=== PATIENT | female | born 1980 | race American Indian/Alaskan Native ===

== ENCOUNTER 2017-10-22 07:14 | Emergency (ER) | payer SELFPAY ==
[2017-10-22 07:49] VITALS: BP 136/87
[2017-10-22 08:15] LABS: Basophils % (Auto) 0.7 % (0.0-1.8); Eosinophils % (Auto) 1.2 % (0.0-4.3); Hematocrit 35.5 % (30.3-42.9); Hemoglobin 11.8 gm/dl (10.1-14.3); Lymphocytes # (Auto) 1.5 K/mm3 (1.2-5.4); Lymphocytes % (Auto) 40.8 % (13.4-35.0); Mean Corpuscular HGB Conc 33 % (30-34); Mean Corpuscular Hemoglobin 28 pg (28-32); Mean Corpuscular Volume 85 fl (79-97); Monocytes # (Auto) 0.3 K/mm3 (0.0-0.8); Monocytes % (Auto) 8.5 % (0.0-7.3); Platelet Count 321 K/mm3 (140-440); Red Blood Count 4.16 M/mm3 (3.65-5.03); Red Cell Distribution Width 16.7 % (13.2-15.2)
[2017-10-22 08:34] LABS: BUN/Creatinine Ratio 13; Blood Urea Nitrogen 8 mg/dL (7-17); Calcium 8.9 mg/dL (8.4-10.2); Hemolysis Index 2
--- NOTE | 2017-10-22 09:32 | Emergency Department Report ---
ED Chest Pain HPI - General Chief Complaint: Pain General Stated Complaint: CHEST/SHOULDER AND BACK PAIN ON LEFT SIDE. FINGERS Time Seen by Provider: 10/22/17 09:24 Source: patient Mode of arrival: Ambulatory Limitations: No Limitations - History of Present Illness Initial Comments: Patient is a 37-year-old female with no significant past medical history, she presented to the ER complaining of left-sided chest pain, sharp in nature and does not radiate increases with movement of her extremity and chest area. Patient denied any shortness of breath, nausea or vomiting. Patient stated that the patient is been going on for more than 2 month now. She denied any fever or cough. MD Complaint: chest pain -: month(s) Onset: during rest Pain Location: left chest Pain Radiation: none Severity: moderate Quality: sharp Consistency: intermittent, now resolved Worsens With: movement - Related Data Previous Rx's Medication Instructions Recorded Last Taken Type Ondansetron [Zofran Odt] 4 mg PO Q4H PRN #20 tab.rapdis 11/07/13 Unknown Rx Pnv 21/Iron Ps,Heme Ppep/Folic 1 each PO QDAY #30 tablet 11/07/13 03/27/14 22: 00 Rx [Prefera Ob Tablet] Progesterone, Micronized 200 mg VG QPM #30 cap 03/29/14 Unknown Rx [Progesterone] Allergies Allergy/AdvReac Type Severity Reaction Status Date / Time No Known Allergies Allergy Unverified 11/07/13 13:20 Heart Score - HEART Score History: Slightly suspicious EKG: Normal Age: < 45 Risk factors: No known risk factors Troponin: < normal limit HEART Score: 0 ED Review of Systems ROS: Stated complaint: CHEST/SHOULDER AND BACK PAIN ON LEFT SIDE. FINGERS Other details as noted in HPI Comment: All other systems reviewed and negative Constitutional: denies: chills, fever Respiratory: denies: cough, orthopnea Cardiovascular: chest pain. denies: palpitations, dyspnea on exertion Gastrointestinal: denies: abdominal pain, nausea, vomiting, diarrhea Musculoskeletal: denies: back pain Neurological: denies: headache, weakness, numbness, paresthesias, confusion, abnormal gait ED Past Medical Hx - Past Medical History Previous Medical History?: No Hx Hypertension: No Hx Congestive Heart Failure: No Hx Diabetes: No Hx Deep Vein Thrombosis: No Hx Renal Disease: No Hx Sickle Cell Disease: No Hx Seizures: No Hx Asthma: No Hx COPD: No Hx HIV: No - Surgical History Past Surgical History?: Yes Additional Surgical History: D&C - Social History Smoking Status: Current Every Day Smoker Substance Use Type: Alcohol - Medications Home Medications: Home Medications Medication Instructions Recorded Confirmed Last Taken Type Ondansetron [Zofran Odt] 4 mg PO Q4H PRN #20 tab.rapdis 11/07/13 03/28/14 Unknown Rx Pnv 21/Iron Ps,Heme Ppep/Folic 1 each PO QDAY #30 tablet 11/07/13 03/28/1403/27 22:00 Rx [Prefera Ob Tablet] Progesterone, Micronized 200 mg VG QPM #30 cap 03/29/14 Unknown Rx [Progesterone] ED Physical Exam - General Limitations: No Limitations General appearance: alert, in no apparent distress - Head Head exam: Present: atraumatic, normocephalic, normal inspection - Eye Eye exam: Present: normal appearance - ENT ENT exam: Present: normal exam - Neck Neck exam: Present: normal inspection, full ROM. Absent: tenderness, meningismus, lymphadenopathy, thyromegaly - Respiratory Respiratory exam: Present: normal lung sounds bilaterally, chest wall tenderness (left upper chest). Absent: respiratory distress, wheezes, rales, rhonchi, stridor, accessory muscle use, decreased breath sounds, prolonged expiratory - Cardiovascular Cardiovascular Exam: Present: regular rate, normal rhythm, normal heart sounds - GI/Abdominal GI/Abdominal exam: Present: soft, normal bowel sounds. Absent: distended, tenderness, guarding, rebound, rigid, organomegaly, mass, bruit, pulsatile mass , hernia - Extremities Exam Extremities exam: Present: normal inspection, full ROM, normal capillary refill. Absent: pedal edema, calf tenderness - Neurological Exam Neurological exam: Present: alert, oriented X3, CN II-XII intact, normal gait - Skin Skin exam: Present: warm, intact, normal color ED Course Vital Signs 10/22/17 07:44 Temperature 98.5 F Pulse Rate 69 Respiratory 18 Rate Blood Pressure 136/87 O2 Sat by Pulse 100 Oximetry ED Medical Decision Making - Lab Data Result diagrams: 10/22/17 07:56 10/22/17 07:56 - EKG Data -: EKG Interpreted by [place] EKG shows normal: sinus rhythm Rate: normal - EKG Data Interpretation: no acute changes Critical care attestation.: If time is entered above; I have spent that time in minutes in the direct care of this critically ill patient, excluding procedure time. ED Disposition Clinical Impression: Chest pain, Costochondritis, acute Disposition: DC-01 TO HOME OR SELFCARE Is pt being admited?: No Condition: Stable Instructions: Chest Pain (ED), Costochondritis (ED) Referrals: PRIMARY CARE, [Primary Care Provider] - 3-5 Days
== END 2017-10-22 09:38 | disposition home or self-care (01) ==
LOC: ED 07:14
DX: M94.0 Chondrocostal junction syndrome [Tietze] (principal); F17.200 Nicotine dependence, unspecified, uncomplicated; Z79.899 Other long term (current) drug therapy
CPT/HCPCS: 36415; 80048; 84484; 85025; 93005; 93010; 99283

== ENCOUNTER 2020-08-11 01:25 | Emergency (ER) | payer BC ==
[2020-08-11] MEDS ORDERED: ASPIRIN 325 MG TAB PO ONE (01:35)
[2020-08-11 02:02] LABS: Basophils # (Auto) 0.1 K/mm3 (0.0-0.1); Eosinophils # (Auto) 0.1 K/mm3 (0.0-0.4); Eosinophils % (Auto) 1.3 % (0.0-4.3); Hematocrit 33.1 % (30.3-42.9); Hemoglobin 11.1 gm/dl (10.1-14.3); Lymphocytes # (Auto) 2.1 K/mm3 (1.2-5.4); Lymphocytes % (Auto) 34.3 % (13.4-35.0); Mean Corpuscular HGB Conc 33 % (30-34); Mean Corpuscular Volume 81 fl (79-97); Monocytes # (Auto) 0.5 K/mm3 (0.0-0.8); Monocytes % (Auto) 8.3 % (0.0-7.3); Platelet Count 364 K/mm3 (140-440); Red Blood Count 4.07 M/mm3 (3.65-5.03); Red Cell Distribution Width 17.5 % (13.2-15.2)
[2020-08-11 02:19] LABS: Alanine Aminotransferase 11 units/L (7-56); Albumin 4.2 g/dL (3.9-5); Blood Urea Nitrogen 8 mg/dL (7-17); Calcium 8.8 mg/dL (8.4-10.2); Hemolysis Index 2
[2020-08-11 02:27] LABS: BUN/Creatinine Ratio 13
[2020-08-11] MEDS ORDERED: NITROGLYCERIN 2% OINT 1 GM TP ONE (02:44)
[2020-08-11] MEDS ORDERED: ONDANSETRON 4 MG/2 ML INJ IV ONE (02:45)
[2020-08-11] MEDS ORDERED: fentaNYL 100 MCG/2 ML INJ IV ONE (02:45)
--- NOTE | 2020-08-11 02:49 | Emergency Department Report ---
HPI - General Chief Complaint: Chest Pain Time Seen by Provider: 08/11/20 02:30 - HPI HPI: Room 4 The patient is a 40-year-old female present with a chief complaint of chest pain. Patient states for the past 2 days she has had intermittent tightness in her left chest and left back. Patient admits to slight shortness of breath with the tightness but denies nausea/vomiting or diaphoresis. Patient missed an occasional cough for the past 4 days but states been nonproductive. Patient denies history of fever or pleurisy. Patient states she recently flew back from [place] 3 days ago. The patient states she never had a stress test or cardiac catheterization ED Past Medical Hx - Past Medical History Previous Medical History?: No - Surgical History Past Surgical History?: Yes Additional Surgical History: D&C - Family History Family history: no significant - Social History Smoking Status: Former Smoker (None x4 months) Substance Use Type: None (Denies illicit drug use), Alcohol (Occasional) - Medications Home Medications: Home Medications Medication Instructions Recorded Confirmed Last Taken Type Ondansetron [Zofran Odt] 4 mg PO Q4H PRN #20 tab.rapdis 11/07/13 03/28/14 Unknown Rx Pnv 21/Iron Ps,Heme Ppep/Folic 1 each PO QDAY #30 tablet 11/07/13 03/28/14 03/27/14 22:00 Rx [Prefera Ob Tablet] Progesterone, Micronized 200 mg VG QPM #30 cap 03/29/14 Unknown Rx [Progesterone] Naproxen [Naprosyn] 500 mg PO BID #14 tablet 10/22/17 Unknown Rx ED Review of Systems ROS: Stated complaint: CHEST PAIN Other details as noted in HPI Constitutional: denies: diaphoresis, fever Eyes: denies: eye pain ENT: denies: throat pain Respiratory: cough, shortness of breath Cardiovascular: chest pain Endocrine: no symptoms reported Gastrointestinal: denies: nausea, vomiting Genitourinary: denies: dysuria Musculoskeletal: back pain Neurological: denies: headache Physical Exam - Physical Exam Vital Signs: Vital Signs 08/11/20 02:37 Respiratory 16 Rate Physical Exam: GENERAL: The patient is well-developed well-nourished female lying on stretcher not appearing to be in acute distress. [] HEENT: Normocephalic. Atraumatic. Extraocular motions are intact. Patient has moist mucous membranes. NECK: Supple. Trachea midline CHEST/LUNGS: Clear to auscultation. There is no respiratory distress noted. HEART/CARDIOVASCULAR: Regular. There is no tachycardia. There is no gallop rub or murmur. ABDOMEN: Abdomen is soft, nontender. Patient has normal bowel sounds. There is no abdominal distention. SKIN: There is no rash. There is no edema. There is no diaphoresis. NEURO: The patient is awake, alert, and oriented. The patient is cooperative. The patient has no focal neurologic deficits. The patient has normal speech MUSCULOSKELETAL: There is no tenderness or deformity. There is no limitation range of motion. Full range of motion of left upper extremity does not reproduce pain. There is no evidence of acute injury. ED Course Vital Signs 08/11/20 02:37 Respiratory 16 Rate ED Medical Decision Making - Lab Data Result diagrams: 08/11/20 01:41 08/11/20 01:41 Laboratory Tests 08/11/20 08/11/20 08/11/20 01:41 01:41 01:46 WBC 6.2 RBC 4.07 Hgb 11.1 Hct 33.1 MCV 81 MCH 27 L MCHC 33 RDW 17.5 H Plt Count 364 Lymph % (Auto) 34.3 [place] % (Auto) 8.3 H Eos % (Auto) 1.3 Baso % (Auto) 1.0 Lymph # (Auto) 2.1 [place] # (Auto) 0.5 Eos # (Auto) 0.1 Baso # (Auto) 0.1 Seg Neutrophils % 55.1 Seg Neutrophils # 3.4 D-Dimer Sodium 137 Potassium 3.7 Chloride 102.0 Carbon Dioxide 27 Anion Gap 12 BUN 8 Creatinine 0.6 Estimated GFR > 60 BUN/Creatinine Ratio 13 Glucose 121 H Calcium 8.8 Total Bilirubin 0.20 AST 14 ALT 11 Alkaline Phosphatase 77 Troponin T Total Protein 7.2 Albumin 4.2 Albumin/Globulin Ratio 1.4 HCG, Qual Negative 08/11/20 08/11/20 01:46 02:55 WBC RBC Hgb Hct MCV MCH MCHC RDW Plt Count Lymph % (Auto) [place] % (Auto) Eos % (Auto) Baso % (Auto) Lymph # (Auto) [place] # (Auto) Eos # (Auto) Baso # (Auto) Seg Neutrophils % Seg Neutrophils # D-Dimer < 135.00 Sodium Potassium Chloride Carbon Dioxide Anion Gap BUN Creatinine Estimated GFR BUN/Creatinine Ratio Glucose Calcium Total Bilirubin AST ALT Alkaline Phosphatase Troponin T < 0.010 Total Protein Albumin Albumin/Globulin Ratio HCG, Qual - EKG Data -: EKG Interpreted by Me EKG shows normal: sinus rhythm Rate: normal - EKG Data When compared to previous EKG there are: previous EKG unavailable Interpretation: nonspecific ST-T wave danette (T wave inversion in lead III) - Radiology Data Radiology results: image reviewed (Chest x-ray) interpreted by me: Chest x-ray-no focal infiltrates, no pneumothorax. No foreign body seen - Differential Diagnosis ACS, pericarditis, PE, GERD, muscle strain Critical care attestation.: If time is entered above; I have spent that time in minutes in the direct care of this critically ill patient, excluding procedure time. ED Disposition Clinical Impression: Chest pain Disposition: OP ADMIT IP TO THIS HOSP Is pt being admited?: Yes Does the pt Need Aspirin: Yes Condition: Fair Instructions: Nonspecific Chest Pain, Adult Referrals: PRIMARY CARE, [Primary Care Provider] - 3-5 Days Time of Disposition: 03:57 (Hospitalist paged (Dr Doshi)) Heart Score - HEART Score History: Moderately suspicious EKG: Non-specific Age: < 45 Risk factors: 1-2 risk factors Troponin: < normal limit HEART Score: 3
--- NOTE | 2020-08-11 03:19 | XRay Report ---
CHEST 2 VIEWS INDICATION / CLINICAL INFORMATION: chestpain. COMPARISON: None available. FINDINGS: SUPPORT DEVICES: None. HEART / MEDIASTINUM: No significant abnormality. LUNGS / PLEURA: No significant pulmonary or pleural abnormality. No pneumothorax. ADDITIONAL FINDINGS: No significant additional findings. IMPRESSION: 1. No acute findings. Signer Name: Brandon Pinto MD Signed: 08/11/2020 3:15 AM Workstation Name: [id number]
--- NOTE | 2020-08-11 04:32 | History and Physical Report ---
History of Present Illness Date of examination: 08/11/20 Date of admission: 08/11/20 Chief complaint: Chest pain History of present illness: The patient is a 40-year-old female present with a chief complaint of chest pain. Patient states for the past 2 days she has had intermittent tightness in her left chest and left back. Patient admits to slight shortness of breath with the tightness but denies nausea/vomiting or diaphoresis. Patient missed an occasional cough for the past 4 days but states been nonproductive. Patient denies history of fever or pleurisy. Patient states she recently flew back from [place] 3 days ago. The patient states she never had a stress test or cardiac catheterization Parent seen in ED at bedside. She reports chest pain like pressure. Patient signed of AMA and does not want to be admitted. Past History Past Medical History: denies: hypertension, hyperlipidemia Past Surgical History: Other (D and C) Social history: lives with family, smoking Family history: no significant family history Medications and Allergies Allergies Allergy/AdvReac Type Severity Reaction Status Date / Time No Known Allergies Allergy Unverified 11/07/13 13:20 Home Medications Medication Instructions Recorded Confirmed Last Taken Type Ondansetron [Zofran Odt] 4 mg PO Q4H PRN #20 tab.rapdis 11/07/13 03/28/14 Unknown Rx Pnv 21/Iron Ps,Heme Ppep/Folic 1 each PO QDAY #30 tablet 11/07/13 03/28/14 03/27/14 22:00 Rx [Prefera Ob Tablet] Progesterone, Micronized 200 mg VG QPM #30 cap 03/29/14 Unknown Rx [Progesterone] Naproxen [Naprosyn] 500 mg PO BID #14 tablet 10/22/17 Unknown Rx Review of Systems Constitutional: no anorexia Ears, nose, mouth and throat: no epistaxis, no bleeding gums Cardiovascular: chest pain Respiratory: no wheezing Gastrointestinal: no melena Genitourinary Female: no pelvic pain Rectal: no hemorrhoids Musculoskeletal: no atrophy Integumentary: no rash, no pruritis Neurological: no weakness Psychiatric: anxiety, no disorientation, no hallucinations Hematologic/Lymphatic: no easy bruising, no easy bleeding Allergic/Immunologic: no urticaria Exam - Constitutional Vitals: Temp Pulse Resp BP Pulse Ox 68 16 115/71 99 08/11/20 03:00 08/11/20 03:00 08/11/20 03:00 08/11/20 03:00 General appearance: Present: mild distress, well-nourished - EENT Eyes: Present: PERRL ENT: hearing intact, clear oral mucosa - Neck Neck: Present: supple, normal ROM - Respiratory Respiratory effort: normal Respiratory: bilateral: CTA - Cardiovascular Heart rate: 69 Heart Sounds: Present: S1 & S2. Absent: rub, click - Extremities Extremities: pulses symmetrical, No edema Peripheral Pulses: within normal limits - Abdominal General gastrointestinal: Present: soft, non-tender, non-distended, normal bowel sounds Female genitourinary: Present: normal - Integumentary Integumentary: Present: clear, warm, dry - Musculoskeletal Musculoskeletal: gait normal, strength equal bilaterally - Psychiatric Psychiatric: appropriate mood/affect, intact judgment & insight, cooperative - Neurologic Neurologic: CNII-XII intact, moves all extremities - Allied Health Allied health notes reviewed: nursing HEART Score - HEART Score EKG: Non-specific Age: < 45 Risk factors: 1-2 risk factors Troponin: Troponin T < 0.010 ng/mL (0.00-0.029) 08/11/20 01:46 Troponin: < normal limit Results - Labs CBC & Chem 7: 08/11/20 01:41 08/11/20 01:41 Labs: Abnormal lab results 08/11/20 08/11/20 Range/Units 01:41 01:41 MCH 27 L (28-32) pg RDW 17.5 H (13.2-15.2) % [place] % (Auto) 8.3 H (0.0-7.3) % Glucose 121 H (65-100) mg/dL Assessment and Plan - Patient Problems (1) Chest pain Current Visit: Yes Status: Acute (2) Tobacco use Current Visit: Yes Status: Acute
[2020-08-11] MEDS ORDERED: hydrALAZINE 20 MG/1 ML INJ IV PRN (05:00)
[2020-08-11] MEDS ORDERED: ONDANSETRON 4 MG/2 ML INJ IV PRN (05:01)
[2020-08-11] MEDS ORDERED: ALUM-MAG HYDROXIDE-SIMETHICONE 200-200-20MG/5ML ORAL LIQD 30 ML PO PRN (05:01)
[2020-08-11] MEDS ORDERED: traZODone 50 MG TAB PO PRN (05:01)
[2020-08-11 05:14] VITALS: BP 122/74
[2020-08-11] MEDS ORDERED: ASPIRIN EC 81 MG TAB PO SCH (10:00)
--- NOTE | 2020-08-12 13:59 | Electrocardiograph Report ---
[facility] Test Date: 2020-08-11 Test Time: 01:37:20 Pat Name: JOSH ARGUELLO Department: Room: Gender: F Brush Hand: TOMASZ : 1980 Requested By: VERONICA JIMENES Order Number: [id number] Reading MD: Johnny Norman Measurements Intervals [place] Rate: 87 P: 54 MT: 146 QRS: -4 QRSD: 101 T: 8 QT: 382 QTc: 461 Interpretive Statements Sinus rhythm No previous ECG available for comparison Electronically Signed On 08-12-2020 10:59:25 PDT by Johnny Norman
== END 2020-08-11 05:14 | disposition left against medical advice (07) ==
LOC: ED 01:25
DX: R07.89 Other chest pain (principal); Z79.899 Other long term (current) drug therapy; Z87.891 Personal history of nicotine dependence; Z98.890 Other specified postprocedural states
CPT/HCPCS: 36415; 71046; 80053; 84484; 84703; 85025; 85379; 93005; 96374; 96375; 99284; J2405; J3010

== ENCOUNTER 2020-08-17 00:02 | Emergency (ER) | payer BC ==
[2020-08-17 00:41] VITALS: BP 161/75
[2020-08-17] MEDS ORDERED: IBUPROFEN 800 MG TAB PO ONE (02:19)
[2020-08-17] MEDS ORDERED: predniSONE 20 MG TAB PO ONE (02:19)
--- NOTE | 2020-08-17 02:27 | Emergency Department Report ---
ED Back Pain/Injury HPI - General Chief Complaint: Extremity Problem,Nontraumatic Stated Complaint: LEFT SIDE SHOULDER PAIN Source: patient Limitations: No Limitations - History of Present Illness Initial Comments: Patient is a 40-year-old white female with no past medical history who presents to the ED with complaint of acute onset persistent nontraumatic left-sided mid posterior thoracic pain for the last 2 weeks intermittently. Patient states that the pain is intermittent and gets worse with movement or palpation of the left posterior thoracic area. Patient denies fall, traumatic injury, chest pain, shortness of breath, fever, chills, nausea, vomiting, headache, neck pain, numbness and tingling or weakness of upper and lower extremities bilaterally, heavy lifting, abdominal pain, dysuria, urinary frequency and urgency or hematuria. MD Complaint: back pain (Left-sided posterior midthoracic pain) -: Sudden, week(s) (2) Similar Symptoms Previously: Yes Place: home Radiation: none Severity: severe Severity scale (0 -10): 7 Quality: sharp, aching Consistency: intermittent Improves With: none Worsens With: movement Context: unknown (Spontaneous) Associated Symptoms: denies other symptoms. denies: confusion, weakness, chest pain, numbness, difficulty walking, cough, difficulty urinating, diaphoresis, incontinence, constipation, headaches, abdominal pain, malaise, nausea/vomiting, rash, seizure, shortness of breath, syncope, other - Related Data Previous Rx's Medication Instructions Recorded Last Taken Type Ondansetron [Zofran Odt] 4 mg PO Q4H PRN #20 tab.rapdis 11/07/13 Unknown Rx Pnv 21/Iron Ps,Heme Ppep/Folic 1 each PO QDAY #30 tablet 11/07/13 03/27/14 22:00 Rx [Prefera Ob Tablet] Progesterone, Micronized 200 mg VG QPM #30 cap 03/29/14 Unknown Rx [Progesterone] Naproxen [Naprosyn] 500 mg PO BID #14 tablet 10/22/17 Unknown Rx Baclofen 20 mg PO Q12H PRN #30 tablet 08/17/20 Unknown Rx Naproxen 500 mg PO Q12H PRN #30 tablet 08/17/20 Unknown Rx predniSONE [Deltasone] 40 mg PO QDAY #10 tab 08/17/20 Unknown Rx Allergies Allergy/AdvReac Type Severity Reaction Status Date / Time No Known Allergies Allergy Unverified 11/07/13 13:20 ED Review of Systems ROS: Stated complaint: LEFT SIDE SHOULDER PAIN Other details as noted in HPI Constitutional: denies: chills, fever Eyes: denies: eye pain, eye discharge, vision change ENT: denies: ear pain, throat pain Respiratory: denies: cough, shortness of breath, wheezing Cardiovascular: denies: chest pain, palpitations Endocrine: no symptoms reported Gastrointestinal: denies: abdominal pain, nausea, diarrhea Genitourinary: denies: urgency, dysuria, discharge Musculoskeletal: back pain (Left-sided posterior mid thoracic area). denies: joint swelling, arthralgia Skin: denies: rash, lesions Neurological: denies: headache, weakness, paresthesias Psychiatric: denies: anxiety, depression Hematological/Lymphatic: denies: easy bleeding, easy bruising ED Past Medical Hx - Past Medical History Previous Medical History?: No - Surgical History Past Surgical History?: Yes Additional Surgical History: D&C - Social History Smoking Status: Never Smoker Substance Use Type: None - Medications Home Medications: Home Medications Medication Instructions Recorded Confirmed Last Taken Type Ondansetron [Zofran Odt] 4 mg PO Q4H PRN #20 tab.rapdis 11/07/13 03/28/14 Unknown Rx Pnv 21/Iron Ps,Heme Ppep/Folic 1 each PO QDAY #30 tablet 11/07/13 03/28/14 03/27/14 22:00 Rx [Prefera Ob Tablet] Progesterone, Micronized 200 mg VG QPM #30 cap 03/29/14 Unknown Rx [Progesterone] Naproxen [Naprosyn] 500 mg PO BID #14 tablet 10/22/17 Unknown Rx Baclofen 20 mg PO Q12H PRN #30 tablet 08/17/20 Unknown Rx Naproxen 500 mg PO Q12H PRN #30 tablet 08/17/20 Unknown Rx predniSONE [Deltasone] 40 mg PO QDAY #10 tab 08/17/20 Unknown Rx ED Physical Exam - General Limitations: No Limitations General appearance: alert, in no apparent distress - Head Head exam: Present: atraumatic, normocephalic, normal inspection - Eye Eye exam: Present: normal appearance, PERRL, EOMI Pupils: Present: normal accommodation - ENT ENT exam: Present: normal exam, normal orophraynx, mucous membranes moist, TM's normal bilaterally, normal external ear exam - Neck Neck exam: Present: normal inspection, full ROM - Respiratory Respiratory exam: Present: normal lung sounds bilaterally. Absent: respiratory distress, wheezes, rales, stridor, chest wall tenderness, accessory muscle use, prolonged expiratory, other - Cardiovascular Cardiovascular Exam: Present: regular rate, normal rhythm, normal heart sounds. Absent: systolic murmur, diastolic murmur, rubs, gallop - GI/Abdominal GI/Abdominal exam: Present: soft, normal bowel sounds. Absent: distended, tenderness, guarding, hyperactive bowel sounds, hypoactive bowel sounds, organomegaly - Extremities Exam Extremities exam: Present: normal inspection, full ROM, normal capillary refill - Back Exam Back exam: Present: normal inspection, full ROM, tenderness (Palpable reproducible left-sided mid posterior thoracic paraspinal musculoskeletal tenderness), muscle spasm, paraspinal tenderness. Absent: CVA tenderness (R), CVA tenderness (L), vertebral tenderness - Neurological Exam Neurological exam: Present: alert, oriented X3, CN II-XII intact, normal gait, reflexes normal - Psychiatric Psychiatric exam: Present: normal affect, normal mood - Skin Skin exam: Present: warm, dry, intact, normal color. Absent: rash ED Course Vital Signs 08/17/20 00:38 Temperature 98.8 F Pulse Rate 83 Respiratory 18 Rate Blood Pressure 161/75 O2 Sat by Pulse 98 Oximetry ED Medical Decision Making - Medical Decision Making This is a 40-year-old white female with no past medical history who presents to the ED with complaint of acute onset persistent nontraumatic left-sided mid posterior thoracic pain for the last 2 weeks intermittently. Patient states that the pain is intermittent and gets worse with movement or palpation of the left posterior thoracic area. In the ED, patient is alert and oriented x3 and is not in any distress. Patient was treated in the ED for pain based on the history and physical exam findings. Patient symptoms are likely due to musculoskeletal muscle strain or bursitis of the left shoulder girdle. On reevaluation, patient's pain is well controlled medications. Patient will discharge home on pain medications and muscle relaxants and was advised to follow-up with her primary care physician in 7 to 10 days for reevaluation or return to the ED immediately if symptoms get worse. - Differential Diagnosis Muscle strain; tendonitis; bursitis; muscle spasm Critical care attestation.: If time is entered above; I have spent that time in minutes in the direct care of this critically ill patient, excluding procedure time. ED Disposition Clinical Impression: Scapulothoracic bursitis of left shoulder, Spasm of thoracic back muscle Muscle strain of left upper back Qualifiers: Encounter type: initial encounter Qualified Code(s): S29.012A - Strain of muscle and tendon of back wall of thorax, initial encounter Disposition: TO HOME OR SELFCARE Is pt being admited?: No Does the pt Need Aspirin: No Condition: Stable Instructions: Muscle Strain, [id number], Bursitis, [id number], Muscle Cramps and Spasms, [id number] Additional Instructions: Your symptoms are likely due to muscle strain or bursitis of the left shoulder girdle. Therefore take medications with food, drink plenty of fluids and follow-up with your primary care physician in 7 to 10 days for reevaluation. Return to the ED immediately if symptoms get worse. Prescriptions: Baclofen 20 mg PO Q12H PRN #30 tablet PRN Reason: Muscle Spasm predniSONE [Deltasone] 40 mg PO QDAY #10 tab Naproxen 500 mg PO Q12H PRN #30 tablet PRN Reason: Pain , Severe (7-10) Referrals: WALTER MOREIRA MD [Staff Physician] - 3-5 Days [facility] [Provider Group] - 3-5 Days Time of Disposition: 02:33 Print Language: [place]OU[place]
== END 2020-08-17 02:50 | disposition home or self-care (01) ==
LOC: ED 00:02
DX: S29.012A Strain of muscle and tendon of back wall of thorax, initial encounter (principal); M75.52 Bursitis of left shoulder; M62.838 Other muscle spasm; Z98.890 Other specified postprocedural states; Z79.899 Other long term (current) drug therapy; X58.XXXA Exposure to other specified factors, initial encounter; Y93.89 Activity, other specified; Y92.89 Other specified places as the place of occurrence of the external cause; Y99.8 Other external cause status
CPT/HCPCS: 99282; J7512

== ENCOUNTER 2020-12-02 03:36 | Emergency (ER) | payer BC, OTHER, SELFPAY ==
[2020-12-02] MEDS ORDERED: ONDANSETRON 4 MG/2 ML INJ IV ONE (04:29)
[2020-12-02] MEDS ORDERED: SODIUM CHLORIDE 0.9% 1000 ML 1,000 ML IV ONE ×2 (04:29→05:59)
--- NOTE | 2020-12-02 04:34 | Emergency Department Report ---
HPI - General Chief Complaint: Nausea/Vomiting/Diarrhea Time Seen by Provider: 12/02/20 04:18 - HPI HPI: This is a 40-year-old female presents to the emergency department via EMS from home with complaint of nausea with vomiting, dehydration, generalized weakness, lightheadedness, loss of taste and smell that has been going on for the past 4 to 5 days. The patient found out yesterday, Thursday, that she tested positive for COVID-19. She has not been able to keep any food or liquid down. No recent travel or sick contacts at home. She has not taken anything for symptoms prior to presentation. She denies any chest pain, shortness of breath, abdominal pain, dysuria, vaginal bleeding or discharge. ED Past Medical Hx - Past Medical History Previous Medical History?: No - Surgical History Past Surgical History?: Yes Additional Surgical History: D&C - Social History Smoking Status: Never Smoker Substance Use Type: Marijuana - Medications Home Medications: Home Medications Medication Instructions Recorded Confirmed Last Taken Type Ondansetron [Zofran Odt] 4 mg PO Q4H PRN #20 tab.rapdis 11/07/13 03/28/14 Unknown Rx Pnv 21/Iron Ps,Heme Ppep/Folic 1 each PO QDAY #30 tablet 11/07/13 03/28/14 03/27/14 22:00 Rx [Prefera Ob Tablet] Progesterone, Micronized 200 mg VG QPM #30 cap 03/29/14 Unknown Rx [Progesterone] Naproxen [Naprosyn] 500 mg PO BID #14 tablet 10/22/17 Unknown Rx Baclofen 20 mg PO Q12H PRN #30 tablet 08/17/20 Unknown Rx Naproxen 500 mg PO Q12H PRN #30 tablet 08/17/20 Unknown Rx predniSONE [Deltasone] 40 mg PO QDAY #10 tab 08/17/20 Unknown Rx Ondansetron [Zofran Odt] 4 mg PO Q8HR PRN #15 tab.rapdis 12/02/20 Unknown Rx ED Review of Systems ROS: Stated complaint: COVID + Other details as noted in HPI Comment: All other systems reviewed and negative Constitutional: diaphoresis, weakness. denies: chills, fever Eyes: denies: eye pain, vision change ENT: denies: ear pain, throat pain Respiratory: denies: cough, shortness of breath Cardiovascular: denies: chest pain, palpitations Gastrointestinal: nausea, vomiting. denies: abdominal pain Genitourinary: denies: dysuria, discharge Musculoskeletal: denies: joint swelling, arthralgia Skin: denies: rash, lesions Neurological: denies: headache, numbness, paresthesias Physical Exam - Physical Exam Vital Signs: Vital Signs 12/02/20 03:50 Temperature 98.3 F Pulse Rate 80 Respiratory 18 Rate Blood Pressure 136/86 [Left] O2 Sat by Pulse 97 Oximetry Physical Exam: GENERAL: The patient is well-developed well-nourished. HENT: Normocephalic. Atraumatic. Patient has moist mucous membranes. EYES: Extraocular motions are intact. NECK: Supple. Trachea is midline. CHEST/LUNGS: Clear to auscultation. There is no respiratory distress noted. HEART/CARDIOVASCULAR: Regular. There is no tachycardia. There is no murmur. ABDOMEN: Abdomen is soft, nontender. Patient has normal bowel sounds. There is no abdominal distention. SKIN: Skin is warm and dry. NEURO: The patient is awake, alert, and oriented. The patient is cooperative. Normal speech. MUSCULOSKELETAL: There is no tenderness or deformity. There is no limitation range of motion. ED Course Vital Signs 12/02/20 03:50 Temperature 98.3 F Pulse Rate 80 Respiratory 18 Rate Blood Pressure 136/86 [Left] O2 Sat by Pulse 97 Oximetry ED Medical Decision Making - Lab Data Result diagrams: 12/02/20 04:58 12/02/20 04:58 Lab Results 12/02/20 12/02/20 12/02/20 Range/Units 04:58 04:58 04:58 WBC 3.2 L (4.5-11.0) K/mm3 RBC 4.39 (3.65-5.03) M/mm3 Hgb 11.8 (10.1-14.3) gm/dl Hct 35.7 (30.3-42.9) % MCV 81 (79-97) fl MCH 27 L (28-32) pg MCHC 33 (30-34) % RDW 17.1 H (13.2-15.2) % Plt Count 226 (140-440) K/mm3 Lymph % (Auto) 15.5 (13.4-35.0) % [place] % (Auto) 11.7 H (0.0-7.3) % Eos % (Auto) 0.0 (0.0-4.3) % Baso % (Auto) 0.4 (0.0-1.8) % Lymph # (Auto) 0.5 L (1.2-5.4) K/mm3 [place] # (Auto) 0.4 (0.0-0.8) K/mm3 Eos # (Auto) 0.0 (0.0-0.4) K/mm3 Baso # (Auto) 0.0 (0.0-0.1) K/mm3 Seg Neutrophils % 72.4 H (40.0-70.0) % Seg Neutrophils # 2.3 (1.8-7.7) K/mm3 Sodium 137 (137-145) mmol/L Potassium 3.6 (3.6-5.0) mmol/L Chloride 101.2 (98-107) mmol/L Carbon Dioxide 24 (22-30) mmol/L Anion Gap 15 mmol/L BUN 7 (7-17) mg/dL Creatinine 0.6 (0.6-1.2) mg/dL Estimated GFR > 60 ml/min BUN/Creatinine Ratio 12 % Glucose 117 H (65-100) mg/dL Calcium 8.5 (8.4-10.2) mg/dL Total Bilirubin 0.20 (0.1-1.2) mg/dL AST 24 (5-40) units/L ALT 13 (7-56) units/L Alkaline Phosphatase 70 (35-129) units/L Total Protein 6.7 (6.3-8.2) g/dL Albumin 4.0 (3.9-5) g/dL Albumin/Globulin Ratio 1.5 % HCG, Qual Negative (Negative) - Medical Decision Making This patient presents to the emergency department with about a 4 to 5-day history of some excessive nausea with vomiting and now the patient feels that she is dehydrated and complains of some generalized weakness. She also has some subjective fever. She just found out she was positive for COVID-19. Vital signs have been reassuring throughout her ED course including being afebrile and no hypoxia. The patient has no complaints of any shortness of breath. She was given a dose of antiemetics and 2 L of IV fluid resuscitation. Labs have been mostly unremarkable including CBC, CMP and the patient is not . She was reevaluated multiple times over multiple hours and is feeling greatly improved. Able to pass an oral challenge. She will be discharged home with Zofran ODT and instructions to follow-up outpatient after quarantine/isolation. She will return to the emergency department with any worsening of her symptoms or with any acute distress. Critical Care Time: No Critical care attestation.: If time is entered above; I have spent that time in minutes in the direct care of this critically ill patient, excluding procedure time. ED Disposition Clinical Impression: COVID-19, Nausea & vomiting, Dehydration Disposition: DC-01 TO HOME OR SELFCARE Is pt being admited?: No Condition: Stable Instructions: Rehydration, Adult, Nausea and Vomiting, Adult, Dehydration, Adult Additional Instructions: Please follow-up with a primary care physician in the next few days. I have given you a referral for a local primary care physician, Dr. Javier, and a primary care clinic, [facility]. Increase your oral rehydration. Return to the emergency department with any worsening of your symptoms, new or concerning symptoms not addressed during this current emergency department visit, or with any acute distress. Prescriptions: Ondansetron [Zofran Odt] 4 mg PO Q8HR PRN #15 tab.rapdis PRN Reason: Nausea Referrals: PRIMARY CAREMD [Primary Care Provider] - 3-5 Days WALTER JAVIER MD [Staff Physician] - 3-5 Days [facility] [Provider Group] - 3-5 Days
[2020-12-02 05:42] LABS: Basophils % (Auto) 0.4 % (0.0-1.8); Hematocrit 35.7 % (30.3-42.9); Hemoglobin 11.8 gm/dl (10.1-14.3); Lymphocytes # (Auto) 0.5 K/mm3 (1.2-5.4); Lymphocytes % (Auto) 15.5 % (13.4-35.0); Mean Corpuscular HGB Conc 33 % (30-34); Mean Corpuscular Volume 81 fl (79-97); Monocytes # (Auto) 0.4 K/mm3 (0.0-0.8); Monocytes % (Auto) 11.7 % (0.0-7.3); Platelet Count 226 K/mm3 (140-440); Red Blood Count 4.39 M/mm3 (3.65-5.03); Red Cell Distribution Width 17.1 % (13.2-15.2)
[2020-12-02 05:52] LABS: Alanine Aminotransferase 13 units/L (7-56); Blood Urea Nitrogen 7 mg/dL (7-17); Calcium 8.5 mg/dL (8.4-10.2); Hemolysis Index 18
[2020-12-02 06:30] LABS: BUN/Creatinine Ratio 12
[2020-12-02 07:42] VITALS: BP 124/71
== END 2020-12-02 07:40 | disposition home or self-care (01) ==
LOC: ED 03:36
DX: U07.1 COVID-19 (principal); E86.0 Dehydration; R11.2 Nausea with vomiting, unspecified; F12.90 Cannabis use, unspecified, uncomplicated; Z98.890 Other specified postprocedural states; Z79.899 Other long term (current) drug therapy
CPT/HCPCS: 36415; 80053; 84703; 85025; 96361; 96374; 99284; J2405; J7030